=== PATIENT | male | born 1945 | race Caucasian/White ===

== ENCOUNTER 2016-12-26 09:52 | Inpatient (IN) | payer OTHER, BC ==
[~2016-12-26] VITALS: Ht 172.7 cm; Wt 89.9 kg
[2016-12-26] MEDS ORDERED: NOR5 PO (10:03)
[2016-12-26] MEDS ORDERED: SIMVASTATIN20 M1 PO (10:03)
[2016-12-26 10:16] LABS: BASOPHIL % 0.4 % (0-2); PLATELET COUNT 219 x10^3mcL (130-400)
[2016-12-26 10:22] LABS: CALCIUM 9.6 mg/dL (8.5-10.1); CREATININE SERUM 1.4 mg/dL (0.7-1.3); POTASSIUM SERUM 4.7 mmol/L (3.5-5.1)
[2016-12-26 10:35] LABS: BILIRUBIN TOTAL 0.94 mg/dL (0.20-1.00); TOTAL PROTEIN, SERUM 7.5 g/dL (6.4-8.2)
[2016-12-26 12:27] VITALS: BP 132/84
[2016-12-26 12:54] LABS: CHOLESTEROL/HDL RATIO 2.5; MAGNESIUM 2.4 mg/dL (1.8-2.4); PHOSPHOROUS 6.3 mg/dL (2.5-4.9)
[2016-12-26 12:59] LABS: T3 TOTAL 0.95 ng/mL
[2016-12-26 13:00] LABS: FREE T4 1.15 ng/dL (0.76-1.46); FREE THYROXINE INDEX 3.3 ug/dL (1.4-4.5); T4(THYROXINE) 9.6 ug/dL (4.7-13.3)
[2016-12-26 18:10] VITALS: BP 123/75
[2016-12-26 18:20] LABS: microscopic required? NO
[2016-12-26 18:53] LABS: UA SPECIFIC GRAVITY >=1.030 (1.005-1.035); urine erythrocyte NEGATIVE (NEGATIVE)
[2016-12-26 21:42] VITALS: BP 113/75
[2016-12-27 05:51] VITALS: BP 135/81
[2016-12-27 06:07] LABS: BASOPHIL % 0.4 % (0-2); PLATELET COUNT 180 x10^3mcL (130-400); RED CELL DISTRIBUTION WIDTH 13.5 % (11.5-14.5)
[2016-12-27 06:24] LABS: CALCIUM 8.7 mg/dL (8.5-10.1); CARBON DIOXIDE 27.5 mmol/L (21-32); CHLORIDE SERUM 109 mmol/L (98-107); CREATININE SERUM 0.9 mg/dL (0.7-1.3); GFR1 > 60 mL/min; GLUCOSE SERUM 121 mg/dL (74-106); MAGNESIUM 2.1 mg/dL (1.8-2.4); PHOSPHOROUS 3.8 mg/dL (2.5-4.9); POTASSIUM SERUM 5.1 mmol/L (3.5-5.1); SODIUM SERUM 142 mmol/L (136-145)
[2016-12-27 08:15] VITALS: BP 133/83
[2016-12-27 13:44] VITALS: BP 139/84
[2016-12-27 17:00] VITALS: BP 111/62
[2016-12-27 21:46] VITALS: BP 99/67
[2016-12-28 05:31] VITALS: BP 137/80
[2016-12-28 06:04] LABS: BASOPHIL % 0.6 % (0-2); PLATELET COUNT 173 x10^3mcL (130-400); RED CELL DISTRIBUTION WIDTH 13.2 % (11.5-14.5)
[2016-12-28 06:33] LABS: CALCIUM 8.9 mg/dL (8.5-10.1); CARBON DIOXIDE 29.4 mmol/L (21-32); CHLORIDE SERUM 108 mmol/L (98-107); CREATININE SERUM 0.8 mg/dL (0.7-1.3); GFR1 > 60 mL/min; GLUCOSE SERUM 124 mg/dL (74-106); SODIUM SERUM 144 mmol/L (136-145)
[2016-12-28 09:42] VITALS: BP 146/90
[2016-12-28] MEDS ORDERED: ECO81 PO (09:43)
[2016-12-28 13:47] VITALS: BP 146/90
== END 2016-12-28 15:15 | disposition home or self-care (01) | DRG 312 ==
LOC: ED 09:52 → DU 10:44
PROVIDERS: Emergency Medicine; Family Medicine; ADMIT Family Medicine
DX: R55 Syncope and collapse (principal); N17.0 Acute kidney failure with tubular necrosis; R73.03 Prediabetes; I35.0 Nonrheumatic aortic (valve) stenosis; I10 Essential (primary) hypertension; E83.39 Other disorders of phosphorus metabolism; E78.5 Hyperlipidemia, unspecified; Z68.30 Body mass index [BMI] 30.0-30.9, adult
CPT/HCPCS: 83880; 84439; 97116-GP; 97530-GP; C9113; J7030; J7040; Q0092; Q9967